=== PATIENT | female | born 1930 | race Caucasian/White ===

== ENCOUNTER 2018-12-30 11:32 | Inpatient (IN) ==
[2018-12-30 12:11] LABS: Basophils # 0.1 10*3/uL (0.0-0.2); Basophils % 0.6 % (0.0-0.8); Eosinophils # 0.1 10*3/uL (0.0-0.87); Eosinophils % 0.6 % (0.00-10.9); Hematocrit 29.8 VOL% (35.7-47.0); Hemoglobin 9.8 GM/DL (12.0-16.0); Immature Granulocytes % 0.5 %; Immature Granulocytes Absolute 0.04 #; Lymphocytes # 1.4 10*3/uL (1.4-4.0); Lymphocytes % 15.7 % (21.3-54.2); Mean Corpuscular HGB Conc 32.9 GM/DL (32-36); Mean Corpuscular Volume 96.1 FL (87-102); Mean Platelet Volume 9.8 FL (9.6-12.0); Monocytes % 14.5 % (1.7-12.7); Neutrophils % 68.1 % (38.7-73.9); Platelet Count 190 T/CUMM (130-400); Red Cell Distribution Width 12.8 % (9.3-17.3); White Blood Count 8.7 T/CUMM (4-12)
[2018-12-30 12:28] LABS: Albumin 3.2 G/DL (3.4-5.0); Bilirubin,Total 0.4 MG/DL (0.2-1.0); Calcium 9.3 MG/DL (8.5-10.1)
[2018-12-30 12:34] LABS: Anisocytosis 1+; Band Neutrophils 3 % (0-10); Eosinophils 2 % (0-10); Lymphocytes 10 % (20-55); Platelet Estimate Normal; Poikilocytosis Slight; Segmented Neutrophils 72 % (50-85); Total Cells Counted 100
[2018-12-30 12:35] LABS: Macrocytosis Slight
[2018-12-30 12:39] LABS: Apearance,Urine Slightly Hazy (Clear); Bacteria,Urine Many /HPF (Few); Bilirubin,Urine Negative (Negative); Blood, Urine Moderate mg/dL (Negative); Glucose,Urine (UA) 150 mg/dL (Negative); Ketones,Urine Negative (Negative); Mucus,Urine Occasional /LPF (Occasional); Nitrite,Urine Positive (Negative); Protein,Urine 100 MG/DL; RBC,Urine 4 /HPF (0-4); Urine Color Yellow (Yellow); Urine Specific Gravity 1.017 (1.001-1.035); Urine Urobilinogen < 2.0 EU/DL (0.2-1.0); WBC,Urine 30 /HPF (0-6)
[2018-12-30 12:46] LABS: INR 0.9; PT Patient Result 10.3 SECS (9.6-12.2); Partial Thromboplastin Time 24.2 SECS (20.8-36.0)
[2018-12-30] MEDS ORDERED: cefTRIAXone 1,000 MG in SODIUM CHLORIDE 0.9% 100 ML IV STA (13:31)
[2018-12-30] MEDS ORDERED: ONDANSETRON 4 MG/2 ML VIAL IV PRN (15:30)
[2018-12-30] MEDS ORDERED: ACETAMINOPHEN 325 MG TABLET PO PRN (15:30)
[2018-12-30] MEDS ORDERED: GLUCAGON 1 MG VIAL IM PRN (15:37)
[2018-12-30] MEDS ORDERED: DEXTROSE 10% 25 GM/250 ML BAG IV PRN (15:37)
[2018-12-30 15:48] LABS: Barbiturates Screen,Urine Negative (Negative); Benzodiazepines Screen,Urine Negative (Negative); Cannabinoid Screen,Urine Negative (Negative); Opiate Screen,Urine Negative (Negative); Phencyclidine Screen,Urine Negative (Negative)
[2018-12-30] MEDS: INSULIN REGULAR 100 UNIT/ML SUBCUT SCH ×2 (17:34→21:54)
[2018-12-30] MEDS: SODIUM CHLORIDE 0.9% 1,000 ML IV SCH (17:45)
[2018-12-31 05:06] LABS: Basophils % 0.4 % (0.0-0.8); Eosinophils # 0.1 10*3/uL (0.0-0.87); Eosinophils % 0.7 % (0.00-10.9); Hematocrit 27.5 VOL% (35.7-47.0); Hemoglobin 9.2 GM/DL (12.0-16.0); Immature Granulocytes % 0.3 %; Immature Granulocytes Absolute 0.02 #; Lymphocytes # 1.9 10*3/uL (1.4-4.0); Lymphocytes % 26.6 % (21.3-54.2); Mean Corpuscular HGB Conc 33.5 GM/DL (32-36); Mean Corpuscular Volume 95.8 FL (87-102); Mean Platelet Volume 10.3 FL (9.6-12.0); Monocytes % 16.1 % (1.7-12.7); Neutrophils % 55.9 % (38.7-73.9); Platelet Count 179 T/CUMM (130-400); Red Blood Count 2.87 MC/CUMM (3.8-5.5); Red Cell Distribution Width 12.8 % (9.3-17.3)
[2018-12-31 05:46] LABS: Calcium 8.4 MG/DL (8.5-10.1); Osmolality,Calculated 281.5 MOS/KG (273-304)
[2018-12-31 05:49] LABS: Risk Ratio 3.22
[2018-12-31 06:39] LABS: Band Neutrophils 2 % (0-10); Eosinophils 1 % (0-10); Lymphocytes 24 % (20-55); Platelet Estimate Normal; Segmented Neutrophils 60 % (50-85); Total Cells Counted 100
[2018-12-31] MEDS: SODIUM CHLORIDE 0.9% 1,000 ML IV SCH (09:54)
[2018-12-31] MEDS: INSULIN REGULAR 100 UNIT/ML SUBCUT SCH ×4 (09:54→23:02)
[2018-12-31] MEDS: ATORVASTATIN 40 MG TABLET PO SCH (09:55)
[2018-12-31] MEDS: ASPIRIN EC 81 MG TABLET PO SCH (09:55)
[2018-12-31] MEDS: CLOPIDOGREL 75 MG TABLET PO SCH (09:55)
[2018-12-31] MEDS: cefTRIAXone 1,000 MG in SYRINGE 1 EACH IV SCH (14:00)
[2019-01-01] MEDS: SODIUM CHLORIDE 0.9% 1,000 ML IV SCH ×2 (00:02→09:09)
[2019-01-01 04:33] LABS: Basophils % 0.3 % (0.0-0.8); Eosinophils # 0.1 10*3/uL (0.0-0.87); Eosinophils % 1.8 % (0.00-10.9); Hematocrit 27.8 VOL% (35.7-47.0); Hemoglobin 9.3 GM/DL (12.0-16.0); Immature Granulocytes % 0.5 %; Immature Granulocytes Absolute 0.03 #; Lymphocytes # 1.8 10*3/uL (1.4-4.0); Lymphocytes % 29.1 % (21.3-54.2); Mean Corpuscular HGB Conc 33.5 GM/DL (32-36); Mean Corpuscular Volume 94.9 FL (87-102); Mean Platelet Volume 9.8 FL (9.6-12.0); Monocytes % 15.5 % (1.7-12.7); Neutrophils % 52.8 % (38.7-73.9); Platelet Count 186 T/CUMM (130-400); Red Blood Count 2.93 MC/CUMM (3.8-5.5); Red Cell Distribution Width 12.7 % (9.3-17.3); White Blood Count 6.3 T/CUMM (4-12)
[2019-01-01 04:50] LABS: Calcium 8.4 MG/DL (8.5-10.1); Osmolality,Calculated 276.8 MOS/KG (273-304)
[2019-01-01 06:45] LABS: Lymphocytes 33 % (20-55); Platelet Estimate Normal; Segmented Neutrophils 54 % (50-85); Total Cells Counted 100
[2019-01-01] MEDS: INSULIN REGULAR 100 UNIT/ML SUBCUT SCH ×4 (08:31→20:36)
[2019-01-01] MEDS: CLOPIDOGREL 75 MG TABLET PO SCH (08:46)
[2019-01-01] MEDS: ASPIRIN EC 81 MG TABLET PO SCH (08:46)
[2019-01-01] MEDS: ATORVASTATIN 40 MG TABLET PO SCH (08:47)
[2019-01-01] MEDS: cefTRIAXone 1,000 MG in SYRINGE 1 EACH IV SCH (14:00)
[2019-01-01] MEDS: carvediloL 6.25 MG TABLET PO SCH (20:36)
[2019-01-01] MEDS ORDERED: FAMOTIDINE 20 MG TABLET PO SCH (21:00)
[2019-01-02 04:37] LABS: Basophils % 0.6 % (0.0-0.8); Eosinophils % 0.6 % (0.00-10.9); Hematocrit 32.1 VOL% (35.7-47.0); Hemoglobin 10.7 GM/DL (12.0-16.0); Immature Granulocytes % 0.6 %; Immature Granulocytes Absolute 0.04 #; Lymphocytes # 1.9 10*3/uL (1.4-4.0); Mean Corpuscular HGB Conc 33.3 GM/DL (32-36); Mean Corpuscular Volume 94.4 FL (87-102); Mean Platelet Volume 10.1 FL (9.6-12.0); Monocytes % 13.2 % (1.7-12.7); Platelet Count 201 T/CUMM (130-400); Red Cell Distribution Width 12.7 % (9.3-17.3); White Blood Count 7.1 T/CUMM (4-12)
[2019-01-02 05:02] LABS: Hypochromasia 1+; Lymphocytes 25 % (20-55); Ovalocytes Slight; Platelet Estimate Adequate; Segmented Neutrophils 65 % (50-85); Total Cells Counted 100
[2019-01-02] MEDS: INSULIN REGULAR 100 UNIT/ML SUBCUT SCH ×2 (08:51→12:09)
[2019-01-02] MEDS ORDERED: amLODIPine 2.5 MG TABLET PO SCH (09:00)
[2019-01-02] MEDS ORDERED: amLODIPine 5 MG TABLET PO SCH (09:00)
[2019-01-02] MEDS: carvediloL 6.25 MG TABLET PO SCH (10:04)
[2019-01-02] MEDS: ATORVASTATIN 40 MG TABLET PO SCH (10:04)
[2019-01-02] MEDS: CLOPIDOGREL 75 MG TABLET PO SCH (10:04)
[2019-01-02] MEDS: ASPIRIN EC 81 MG TABLET PO SCH (10:04)
[2019-01-02 12:10] VITALS: BP 135/90
[2019-01-02] MEDS ORDERED: LACTULOSE 20 GM/30 ML UDCUP PO SCH (12:38)
== END 2019-01-02 16:00 | DRG 65 ==
LOC: N.ED 11:32 → N.EDINP 15:30 → SUATTDRO 15:30 → N.TELEN 16:28
PROVIDERS: ADMIT Hospitalist; ATTEND Internal Medicine